=== PATIENT | male | born 1985 | race African-American/Black ===

== ENCOUNTER 2017-11-03 12:06 | Emergency (ER) | payer SELFPAY ==
[2017-11-03] MEDS ORDERED: Ondansetron ODT 4 MG TAB ONE (12:43)
[2017-11-03] MEDS ORDERED: metroNIDAZOLE 250 MG TAB ONE (12:43)
[2017-11-03] MEDS ORDERED: Azithromycin 250 MG TAB ONE (12:43)
[2017-11-03] MEDS ORDERED: cefTRIAXone\\ROCEPHIN 500 MG VIAL ONE (12:44)
[2017-11-03] MEDS ORDERED: Lidocaine 1% 20 ML MDV ONE (12:44)
== END 2017-11-03 13:14 | disposition home or self-care (01) ==
LOC: BURERS 12:06
DX: A54.00 Gonococcal infection of lower genitourinary tract, unspecified (principal); F41.9 Anxiety disorder, unspecified; F17.210 Nicotine dependence, cigarettes, uncomplicated
CPT/HCPCS: 96372; J0696; J2001; Q0162

== ENCOUNTER 2020-05-12 12:18 | Emergency (ER) | payer SELFPAY ==
[2020-05-12] MEDS ORDERED: cefTRIAXone\\ROCEPHIN 500 MG VIAL ONE ×2 (13:29→13:31)
[2020-05-12] MEDS ORDERED: Azithromycin 250 MG TAB ONE ×2 (13:29→13:51)
[2020-05-12] MEDS ORDERED: Sterile Water 0 ML ONE (13:31)
[2020-05-12 13:35] LABS: Bilirubin Negative (Negative); Blood, Urine Trace (Negative); Clarity Cloudy (Clear); Glucose, Urine (Dipstick) Negative (Negative); Ketone, Urine Negative (Negative); Leukocyte Large (Negative); Nitrite Negative (Negative); Protein, Urine (Dipstick) Negative (Neg-Trace); Urobilinogen 0.2 mg/dL (Less than 2); pH, Urine 5.5 (5.0-9.0)
[2020-05-12 13:40] LABS: Bacteria/HPF Rare-Few HPF (None Seen); RBC/HPF 0-3 HPF (0-3); Squamous Epithelial 0-3 HPF (0-3); WBC/HPF 21-50 HPF (0-3)
[2020-05-14 23:03] LABS: Chlam.trachomatis by PCR,Urine Not Detected (NotDetected)
== END 2020-05-12 13:54 | disposition home or self-care (01) ==
LOC: BURERS 12:18
DX: N39.0 Urinary tract infection, site not specified (principal); A54.9 Gonococcal infection, unspecified; F41.9 Anxiety disorder, unspecified; F17.210 Nicotine dependence, cigarettes, uncomplicated
CPT/HCPCS: 81003; 81015; 87491; 87591; 96372; 99283; J0696